=== PATIENT | female | born 1930 | race Caucasian/White ===

== ENCOUNTER 2017-01-23 09:17 | Emergency (ER) | payer MEDICARE ==
[~2017-01-23] VITALS: Ht 163.8 cm; Wt 76.0 kg
[2017-01-23 11:05] VITALS: BP 148/70
== END 2017-01-23 11:06 | disposition home or self-care (01) ==
LOC: ED 09:21
DX: S20.221A Contusion of right back wall of thorax, initial encounter (principal); S22.31XA Fracture of one rib, right side, initial encounter for closed fracture; W01.10XA Fall on same level from slipping, tripping and stumbling with subsequent striking against unspecified object, initial encounter; Y93.E1 Activity, personal bathing and showering; Y92.002 Bathroom of unspecified non-institutional (private) residence as the place of occurrence of the external cause
CPT/HCPCS: 71100; 99282; 99283